=== PATIENT | female | born 1965 | race Caucasian/White ===

== ENCOUNTER 2025-01-20 11:34 | Emergency (ER) | payer OTHER ==
[~2025-01-20] VITALS: Ht 152.4 cm; Wt 149.2 kg
[2025-01-20] MEDS ORDERED: Dexamethasone Sodium Phospha 10 MG/1 ML VIAL IM ONE (12:40)
[2025-01-20] MEDS ORDERED: diazePAM 10 MG/2 ML SYR IM ONE (12:40)
[2025-01-20] MEDS ORDERED: PREDNISONE20 M1 PO (14:30)
[2025-01-20] MEDS ORDERED: METHOCARBAMOL750 M1 PO (14:30)
== END 2025-01-20 14:42 | disposition home or self-care (01) ==
LOC: ED 11:34
DX: M77.8 Other enthesopathies, not elsewhere classified (principal); I50.9 Heart failure, unspecified; J44.9 Chronic obstructive pulmonary disease, unspecified; E11.9 Type 2 diabetes mellitus without complications; K21.9 Gastro-esophageal reflux disease without esophagitis; F32.A Depression, unspecified; Z88.1 Allergy status to other antibiotic agents